=== PATIENT | female | born 1995 | race Caucasian/White ===

== ENCOUNTER 2018-02-24 19:39 | Emergency (ER) | payer OTHER ==
[~2018-02-24] VITALS: Ht 160 cm; Wt 59.1 kg
[2018-02-24 19:47] VITALS: BP 126/72; TEMP 97.9
[2018-02-24 20:28] LABS: BASO % 0.4 % (0.0-2.0); EOS % 0.4 % (0-4.0); GRAN # 5.7 (1.4-6.5); GRAN % 72.1 % (42.2-75.2); HEMOGLOBIN 14.1 g/dl (12.0-15.0); LYMPH # 1.6 (1.2-3.4); LYMPH % 20.5 % (20.0-51.0); MEAN CELL VOLUME 88 fl (80.0-95.0); MEAN CORPUSCULAR HEMOGLOBIN 31 pg (26.0-32.0); MEAN CORPUSCULAR HGB CONC 35 g/dl (33.0-37.0); MEAN PLATELET VOLUME 10.4 fl (7.4-10.4); MONO # 0.5 (0.1-0.6); MONO % 6.5 % (1.7-9.3); PLATELET COUNT 221 K/mm3 (130-400); RED BLOOD COUNT 4.56 M/mm3 (4.10-5.30); REDCELL DISTRIBUTION WIDTH-CV 12.2 % (11.5-14.5)
[2018-02-24 23:14] VITALS: PULSE 94
== END 2018-02-24 23:14 | disposition home or self-care (01) ==
LOC: COL.ER 19:39
PROVIDERS: Family Medicine
DX: O46.91 Antepartum hemorrhage, unspecified, first trimester (principal); Z3A.08 8 weeks gestation of pregnancy